=== PATIENT | female | born 1985 | race Hispanic/Latino ===

== ENCOUNTER 2017-03-24 05:32 | Emergency (ER) | payer OTHER ==
[2017-03-24 05:45] VITALS: BP 129/85; PULSE 84; RESP 18; TEMP 97.7; O2SAT 98
[2017-03-24] MEDS ORDERED: Sodium Chloride 0.9% 1,000 ML IV STA (05:53)
[2017-03-24 06:38] LABS: BASO # 0.1 K/uL (0.0-0.2); BASO % 0.8 % (0.0-2.0); EOS # 0.1 K/uL (0.0-0.7); HEMATOCRIT 39.3 % (34.0-47.0); LYMPH # 1.8 K/uL (1.0-4.3); MEAN CELL VOLUME 96.1 fl (81.0-99.0); MEAN CORPUSCULAR HGB CONC 33.4 g/dL (33.0-37.0); MEAN PLATELET VOLUME 8.7 fl (7.2-11.7); MONO # 0.7 K/uL (0.0-0.8); MONO % 6.4 % (0.0-10.0); NEUT # 7.8 K/uL (1.8-7.0); NEUT % 74.8 % (50.0-75.0); NRBC % 0.1 % (0.0-0.0); RED CELL DISTRIBUTION WIDTH 12.8 % (11.5-14.5); WHITE BLOOD COUNT 10.4 K/uL (4.8-10.8)
[2017-03-24 06:41] LABS: ALB/GLOB RATIO 1.5 (1.0-2.1); ALKALINE PHOSPHATASE 58 U/L (38-126); ALT/SGPT 31 U/L (9-52); AST/SGOT 31 U/L (14-36); BILIRUBIN,TOTAL 0.4 mg/dl (0.2-1.3); BLOOD UREA NITROGEN 21 mg/dl (7-17); CALCIUM 9.7 mg/dL (8.4-10.2); CARBON DIOXIDE 21 mmol/L (22-30); CHLORIDE 110 mmol/L (98-107); GFR AFRICAN-AMERICAN > 60; GLUCOSE,RANDOM 103 mg/dL (65-105); POTASSIUM 3.8 MMOL/L (3.6-5.0); SODIUM 144 mmol/l (132-148); TOTAL PROTEIN 7.4 G/DL (6.3-8.2)
--- NOTE | 2017-03-24 06:51 | ED PDOC ---
HPI: Back Time Seen by Provider: 03/24/17 05:47 Chief Complaint (Nursing): Abdominal Pain Chief Complaint (Provider): Left Flank Pain History Per: Patient History/Exam Limitations: no limitations Onset/Duration Of Symptoms: Hrs (x 1) Additional Complaint(s): 31 y/o female presents to the ED with acute onset left flank pain for the past hour. Patient also senses a sharp stabbing pain with urination. She reports feeling nauseous but has not vomited. Patient has not other medical complaints. PMD: None Provided Past Medical History Reviewed: Historical Data, Nursing Documentation, Vital Signs Vital Signs: Last Vital Signs Temp 97.7 F 03/24/17 05:42 Pulse 84 03/24/17 05:42 Resp 18 03/24/17 05:42 BP 129/85 03/24/17 05:42 Pulse Ox 98 03/24/17 05:42 - Medical History PMH: No Chronic Diseases - Surgical History Other surgeries: left ACL repair - Family History Family History: States: Unknown Family Hx - Social History Current smoker - smoking cessation education provided: No Ex-Smoker (has not smoked in the last 12 months): No Alcohol: Occasional Drugs: Denies - Home Medications Home Medications: Ambulatory Orders Medication Instructions Recorded Ciprofloxacin [Cipro] 500 mg PO BID #10 tab 03/24/17 Naproxen [Naprosyn] 500 mg PO BID PRN #14 tablet 03/24/17 Tamsulosin [Flomax] 0.4 mg PO DAILY #3 cap 03/24/17 oxyCODONE/Acetaminophen [Percocet 1 ea PO Q6 PRN #5 tab 03/24/17 5/325 mg Tab] - Allergies Allergies/Adverse Reactions: Allergies Allergy/AdvReac Type Severity Reaction Status Date / Time Penicillins Allergy RASH Verified 03/24/17 05:42 Review of Systems ROS Statement: Except As Marked, All Systems Reviewed And Found Negative Gastrointestinal: Positive for: Nausea. Negative for: Vomiting Genitourinary Female: Positive for: Dysuria Musculoskeletal: Positive for: Back Pain (left flank) Physical Exam - Reviewed Nursing Documentation Reviewed: Yes Vital Signs Reviewed: Yes - Physical Exam Appears: Positive for: Non-toxic, No Acute Distress, Uncomfortable Head Exam: Positive for: ATRAUMATIC, NORMAL INSPECTION, NORMOCEPHALIC Skin: Positive for: Normal Color, Warm, Dry Eye Exam: Positive for: Normal appearance, EOMI, PERRL. Negative for: Nystagmus ENT: Positive for: Normal ENT Inspection Neck: Positive for: Normal, Painless ROM, Supple Cardiovascular/Chest: Positive for: Regular Rate, Rhythm. Negative for: Edema, Murmur Respiratory: Positive for: Normal Breath Sounds. Negative for: Wheezing, Respiratory Distress Gastrointestinal/Abdominal: Positive for: Normal Exam, Bowel Sounds, Soft. Negative for: Tenderness Back: Positive for: Normal Inspection Extremity: Positive for: Normal ROM. Negative for: Pedal Edema, Deformity Neurologic/Psych: Positive for: Alert, Oriented - Laboratory Results Result Diagrams: 03/24/17 06:21 03/24/17 06:21 - ECG O2 Sat by Pulse Oximetry: 98 (RA) Pulse Ox Interpretation: Normal Medical Decision Making Medical Decision Making: Time: 5:52 Initial Impression: 31 y/o with left flank pain Initial Plan: --CT Abdomen Pelvis w/o Contrast --CMP --Urine --CBC --Toradol --Zofran --Urinalysis Time: 7:00 --Patient signed out to Dr. Singh pending labs and CT. Scribe Attestation: Documented by Ajay Blank, acting as a scribe for Dr. Eladio Marley MD. Provider Scribe Attestation: All medical record entries made by the Scribe were at my direction and personally dictated by me. I have reviewed the chart and agree that the record accurately reflects my personal performance of the history, physical exam, medical decision making, and the department course for this patient. I have also personally directed, reviewed, and agree with the discharge instructions and disposition. Disposition - Clinical Impression Clinical Impression: Nephrolithiasis - Patient ED Disposition Is Patient to be Admitted: Transfer of Care - Disposition Disposition: Transfer of Care Disposition Time: 06:00 Condition: FAIR Additional Instructions: Drink plenty of fluids today, avoid caffeine or alcohol. Take medications as directed. Return to ER for any worse pain, fever, significant blood in urine, or any concern. Prescriptions: Ciprofloxacin [Cipro] 500 mg PO BID #10 tab Naproxen [Naprosyn] 500 mg PO BID PRN #14 tablet PRN Reason: Pain, Moderate (4-7) oxyCODONE/Acetaminophen [Percocet 5/325 mg Tab] 1 ea PO Q6 PRN #5 tab PRN Reason: Pain, Severe (8-10) Tamsulosin [Flomax] 0.4 mg PO DAILY #3 cap Patient Signed Over To: Gerard Singh III
--- NOTE | 2017-03-24 07:03 | ED PDOC ---
"- Laboratory Results Result Diagrams: 03/24/17 06:21 03/24/17 06:21 - ECG O2 Sat by Pulse Oximetry: 98 (RA) Medical Decision Making Medical Decision Makinam recd pending CT result 720a FINDINGS: The liver, spleen, gallbladder and pancreas appear grossly normal on this non- contrast study. There is mild left hydronephrosis.There is a 3 x 2 mm calculi in the very distal left ureter at the UVJ. An adjacent phlebolith is present. Decompressed urinary bladder w slightly prominent wall. Superimposed cystitis cannot be excluded. Left ovarian follicles are noted. The uterus appears grossly normal. The bowel appears grossly normal. A normal appendix is identified axial images 49 through 55. IMPRESSION: OLIMPIA HALE | Preliminary Radiology Report DEPUTY BRAND INSPECTOR (QA) DISCREPANCY? If there is a discrepancy between the preliminary and final interpretation, please notify [facility] via [email or web address]. If you do not have access to our QA portal, call our QA team at [phone] CONFIDENTIALITY STATEMENT This report is intended only for the use of the referring physician, and only in accordance with law, If you received this in error, call [phone] Page 2 of 2 Obstructing calculi left distal ureter/ UVJ. Thank you for allowing us to participate in the care of your patient. Dictated and Authenticated by: Nicole Kaminski MD 03/24/2017 7:10 AM Eastern Time ([place] & [place]) 725a results explained, still w some pain. Tylenol 975mg added and flomax 0.4mg initiated. IVF continuing. This is first kidney stone for patient. 0845 patient improved, remains w some discomfort but pain resolving and patient wishes to be discharged. Offered further monitoring in ED but prefers to go home and followup w urology. Analgesics Rx provided and followup information explained, including indications for return to ER if necessary. Disposition - Clinical Impression Clinical Impression: Nephrolithiasis - POA Present On Arrival: None - Disposition Disposition: Routine/Home Disposition Time: 09:30 Condition: FAIR Additional Instructions: Drink plenty of fluids today, avoid caffeine or alcohol. Take medications as directed. Return to ER for any worse pain, fever, significant blood in urine, or any concern. Prescriptions: Ciprofloxacin [Cipro] 500 mg PO BID #10 tab Naproxen [Naprosyn] 500 mg PO BID PRN #14 tablet PRN Reason: Pain, Moderate (4-7) oxyCODONE/Acetaminophen [Percocet 5/325 mg Tab] 1 ea PO Q6 PRN #5 tab PRN Reason: Pain, Severe (8-10) Tamsulosin [Flomax] 0.4 mg PO DAILY #3 cap"
[2017-03-24 08:45] LABS: URINE BILIRUBIN NEGATIVE (NEGATIVE); URINE BLOOD MODERATE (NEGATIVE); URINE COLOR YELLOW (YELLOW); URINE GLUCOSE (UA) NEG (Normal); URINE KETONE NEGATIVE (NEGATIVE); URINE LEUKOCYTE ESTERASE SMALL Leu/uL (Negative); URINE PROTEIN NEGATIVE (NEGATIVE); URINE UROBILINOGEN 0.2-1.0 mg/dL (0.2-1.0)
[2017-03-24 08:52] LABS: RBC URINE 28 /hpf (0-3); WBC URINE 10 /hpf (0-5)
[2017-03-24 08:53] LABS: URINE BACTERIA FEW (<OCC)
--- NOTE | 2017-03-24 09:18 | CT ---
PROCEDURE: CT Abdomen and Pelvis without intravenous contrast HISTORY: Renal colic COMPARISON: None. TECHNIQUE: CT scan of the abdomen and pelvis was performed without administration of intravenous contrast. Oral contrast was not administered. Coronal and sagittal reformatted images were obtained. Radiation dose: Total exam DLP = 530.38 mGy-cm. This CT exam was performed using one or more of the following dose reduction techniques: Automated exposure control, adjustment of the mA and/or kV according to patient size, and/or use of iterative reconstruction technique. FINDINGS: LOWER THORAX: The visualized lungs are clear. LIVER: The liver is normal in size. No gross lesion or ductal dilatation. GALLBLADDER AND BILE DUCTS: No calcified gallstones. PANCREAS: The pancreas is normal in size. No gross lesion or ductal dilatation. SPLEEN: The spleen is normal in size. ADRENALS: Both adrenal glands are normal in size without discrete nodule. KIDNEYS AND URETERS: There is a 4 mm stone in the left distal ureteral proximal to the UV junction with resultant mild diffuse dilatation of the left ureteral, mild hydronephrosis, edema and enlargement of the left kidney and perinephric fat stranding. There is no evidence of nephrolithiasis. VASCULATURE: No aortic aneurysm. BOWEL: The small bowel loops are normal in caliber. The colon is unremarkable. APPENDIX: Normal appendix. PERITONEUM: No free fluid. No free air. LYMPH NODES: No enlarged lymph nodes. BLADDER: Unremarkable. REPRODUCTIVE: Unremarkable. BONES: No acute fracture. OTHER FINDINGS: None. IMPRESSION: Mild left obstructive uropathy resulting from a 4 mm stone in the distal ureteral proximal to the UV junction. A preliminary report was provided by [facility].
== END 2017-03-24 09:03 | disposition home or self-care (01) ==
LOC: H.ER 05:32
DX: N20.2 Calculus of kidney with calculus of ureter (principal); Z88.0 Allergy status to penicillin
CPT/HCPCS: 74176; 80053; 81003; 81025; 85025; 96361; 96374; 96375; 99284; J1885; J2405; J7040